=== PATIENT | male | born 1990 | race Caucasian/White ===

== ENCOUNTER 2017-06-22 20:38 | Emergency (ER) | payer SELFPAY ==
[~2017-06-22] VITALS: Ht 180.3 cm; Wt 83.9 kg
[~2017-06-22 20:38] MED LIST: ANTIBIOTIC O500 U/GM TP; ATARAX25 MG PO; BACTRIM DS 8001 TA1 PO; CLEOCIN150 MG PO; DAYPRO600 M1 PO; HYDROCODONE BIT1 T11 PO; MOTRIN800 MG PO; NAPROSYN500 MG PO; NORCO 325 MG-51 TAB PO; PEPCID20 MG PO; PERIDEX 480 ML480 ML PO; PHENERGAN25 M1 PO; PREDNISONE20 MG PO; ROBAXIN750 MG PO; TRIMOX500 MG PO; ULTRAM50 MG PO; VICODIN 5/500 505 MG PO; VICODIN 500 MG-1 TAB PO; ZOFRAN4 MG PO
== END 2017-06-22 23:15 | disposition left against medical advice (07) ==
LOC: ED 20:38
DX: T65.91XA Toxic effect of unspecified substance, accidental (unintentional), initial encounter (principal); H10.211 Acute toxic conjunctivitis, right eye; F17.200 Nicotine dependence, unspecified, uncomplicated; Z88.0 Allergy status to penicillin; Z88.6 Allergy status to analgesic agent; Z91.030 Bee allergy status; Y92.9 Unspecified place or not applicable

== ENCOUNTER 2019-03-04 16:23 | Emergency (ER) | payer SELFPAY ==
[~2019-03-04] VITALS: Ht 180.3 cm; Wt 88.5 kg
[2019-03-04] MEDS ORDERED: CYCLOBENZAPRINE10 MG PO (18:31)
[2019-03-04] MEDS ORDERED: Motrin,Rufen800 MG PO (18:31)
== END 2019-03-04 18:49 | disposition home or self-care (01) ==
LOC: ED 16:23
DX: S39.012A Strain of muscle, fascia and tendon of lower back, initial encounter (principal); Z88.0 Allergy status to penicillin; Z88.6 Allergy status to analgesic agent; Z91.030 Bee allergy status; V43.62XA Car passenger injured in collision with other type car in traffic accident, initial encounter; Y93.89 Activity, other specified; Y92.488 Other paved roadways as the place of occurrence of the external cause; Y99.8 Other external cause status

== ENCOUNTER 2021-07-12 09:35 | Emergency (ER) | payer SELFPAY ==
[~2021-07-12 09:35] MED LIST changes: +CYCLOBENZAPRINE10 MG PO; +Motrin,Rufen800 MG PO
== END 2021-07-12 09:50 | disposition left against medical advice (07) ==
LOC: ED 09:35
DX: H92.09 Otalgia, unspecified ear (principal); Z53.21 Procedure and treatment not carried out due to patient leaving prior to being seen by health care provider

== ENCOUNTER 2023-08-23 20:14 | Emergency (ER) | payer SELFPAY ==
[~2023-08-23] VITALS: Ht 180.3 cm; Wt 95.3 kg
[2023-08-23] MEDS ORDERED: NAPROXEN250 MG PO (21:05)
[2023-08-23] MEDS ORDERED: METHOCARBAMOL750 M1 PO (21:05)
== END 2023-08-23 21:17 | disposition home or self-care (01) ==
LOC: ED 20:14
DX: S39.012A Strain of muscle, fascia and tendon of lower back, initial encounter (principal); M54.42 Lumbago with sciatica, left side; Z91.030 Bee allergy status; Z88.0 Allergy status to penicillin; Z88.8 Allergy status to other drugs, medicaments and biological substances; X50.0XXA Overexertion from strenuous movement or load, initial encounter; Y93.89 Activity, other specified; Y92.009 Unspecified place in unspecified non-institutional (private) residence as the place of occurrence of the external cause; Y99.8 Other external cause status

== ENCOUNTER 2024-06-12 13:31 | Emergency (ER) | payer SELFPAY ==
[~2024-06-12] VITALS: Ht 180.3 cm; Wt 90.7 kg
[~2024-06-12 13:31] MED LIST changes: +METHOCARBAMOL750 M1 PO; +NAPROXEN250 MG PO
[2024-06-12] MEDS ORDERED: AMOX-CLAV 875-1 EACH PO (14:42)
[2024-06-12] MEDS ORDERED: CLEOCIN HCL300 MG PO (14:42)
[2024-06-12] MEDS ORDERED: IBUPROFEN 600 MG TAB PO ONE (14:45)
[2024-06-12] MEDS ORDERED: Amoxicillin/Clavulanate Pota 875 MG TAB PO ONE (14:45)
[2024-06-12] MEDS ORDERED: ACETAMINOPHEN 325 MG TAB PO ONE (14:45)
[2024-06-12] MEDS ORDERED: CLINDAMYCIN HCL 300 MG CAPSULE PO ONE (14:45)
== END 2024-06-12 15:14 | disposition home or self-care (01) ==
LOC: ED 13:31
DX: S02.5XXA Fracture of tooth (traumatic), initial encounter for closed fracture (principal); K08.89 Other specified disorders of teeth and supporting structures; R22.9 Localized swelling, mass and lump, unspecified; Z91.030 Bee allergy status; Z88.0 Allergy status to penicillin; Z88.5 Allergy status to narcotic agent; X58.XXXA Exposure to other specified factors, initial encounter; Y93.89 Activity, other specified; Y92.89 Other specified places as the place of occurrence of the external cause; Y99.8 Other external cause status

== ENCOUNTER 2025-06-28 14:04 | Emergency (ER) | payer OTHER ==
[~2025-06-28] VITALS: Wt 95.3 kg
[~2025-06-28 14:04] MED LIST changes: +AMOX-CLAV 875-1 EACH PO; +CLEOCIN HCL300 MG PO
[2025-06-28] MEDS ORDERED: METHOCARBAMOL750 M1 PO (17:24)
== END 2025-06-28 17:34 | disposition home or self-care (01) ==
LOC: ED 14:04
DX: M25.511 Pain in right shoulder (principal); M54.50 Low back pain, unspecified; R07.89 Other chest pain; Z91.030 Bee allergy status; Z88.0 Allergy status to penicillin; Z88.5 Allergy status to narcotic agent; V49.9XXA Car occupant (driver) (passenger) injured in unspecified traffic accident, initial encounter; Y93.89 Activity, other specified; Y92.410 Unspecified street and highway as the place of occurrence of the external cause; Y99.8 Other external cause status

== ENCOUNTER 2025-10-13 18:37 | Emergency (ER) | payer SELFPAY ==
[~2025-10-13] VITALS: Ht 180.3 cm; Wt 97.5 kg
[2025-10-13] MEDS ORDERED: Ondansetron Hydrochloride 4 MG TAB SL ONE (19:30)
[2025-10-13] MEDS ORDERED: CLINDAMYCIN HCL 300 MG CAPSULE PO ONE (19:30)
[2025-10-13] MEDS ORDERED: Acetaminophen/Hydrocodone 5 MG/325 MG TABLET PO ONE (19:30)
[2025-10-13] MEDS ORDERED: CLINDAMYCIN HC300 MG PO (19:34)
== END 2025-10-13 19:44 | disposition home or self-care (01) ==
LOC: ED 18:37
DX: K02.9 Dental caries, unspecified (principal); Z91.030 Bee allergy status; Z88.0 Allergy status to penicillin; Z88.8 Allergy status to other drugs, medicaments and biological substances